=== PATIENT | female | born 1990 | race Caucasian/White ===

== ENCOUNTER 2016-07-09 13:33 | Emergency (ER) | payer BC ==
[2016-07-09 13:40] VITALS: RESP 16
--- NOTE | 2016-07-09 15:20 | EDPHY ---
H & P Time Seen by Provider: 07/09/16 15:17 HPI/ROS: HPI: 25-year-old female presents to emergency department with chief concern left 3rd finger laceration that occurred at 2:00 p.m. today when she cut herself at home with a blunt edge clean kitchen knife. Washed, applied CHI and pepper to control bleeding, and presents for evaluation. Reports pain, deformity, inability to fully straighten the distal portion of her left 3rd finger. Denies weakness, numbness, or tingling of the finger. Up-to-date with tetanus. Right-hand dominant. ROS:10 point review of systems is negative other than as stated in HPI Smoking Status: Never smoked Physical Exam: Vital signs stable, reviewed by me General: Awake, alert, calm, cooperative. No acute distress. Head: Normalocephalic. Atraumatic. EENT: PERRLA. EOMI. CV: Radial pulses 2+ bilaterally. Brisk cap refill all extremities. Neuro: Alert. Oriented x 3. Speech clear. Sensation intact all extremities, specifically sensation intact distal to laceration left 3rd finger Skin: Skin warm, dry. There is a 1 cm horizontal laceration located dorsum of left 3rd finger, just proximal to the DIPJ Musculoskeletal: Strength 5+ all extremities. Flexion deformity at DIPJ of left 3rd finger Constitutional: Initial Vital Signs Temperature (C) 36.6 C 07/09/16 13:37 Heart Rate 96 07/09/16 13:37 Respiratory Rate 16 07/09/16 13:37 Blood Pressure 116/73 07/09/16 13:37 O2 Sat (%) 97 07/09/16 13:37 O2 Delivery Mode Room Air Allergies/Adverse Reactions: No Known Allergies Allergy (Unverified 07/09/16 13:37) Home Medications: Medication Instructions Recorded Cephalexin [Keflex (*)] 500 mg PO QID #28 cap 07/09/16 Hydrocodone/APAP 5/325 [[place] 1 tab PO Q4H PRN #6 tab 07/09/16 5/325 (*)] Medical Decision Making - Diagnostics Imaging: Left 3rd finger - 3 views dated July 09, 2016 15:30 Indication: Deformity. Pain. Findings: Mallet finger deformity is evidenced by 45 degrees of flexion at the DIP joint. No acute fracture. Soft tissue defect is present along the dorsal aspect of the middle phalanx. Impression: 1. Suspect extensor tendon injury. 2. No acute fracture. Dictated By: Hilario Archer MD Procedures: After verbal consent was obtained and risks and benefits explained, the laceration was anesthetized using a digital block for a total of 4 ml of 0.5% Marcaine. Lac then irrigated per protocol by veterinary technician instructor. Under sterile procedure, the wound was explored to its base with a gloved finger and lacerated extensor tendon identified. No deep structure identified. Wound was then draped and sterile procedure followed during laceration repair. Wound was repaired using # 4, 5-0 Prolene sutures. After repair, laceration cleansed, bacitracin and sterile dressing applied. Procedure performed by myself. Procedure was simple. Pt tolerated the procedure well. ED Course/Re-evaluation: Hand specialist Dr. Norton consulted, spoke with his PARachel. They will evaluate this patient tomorrow. Boostrix given, after dressing applied, finger splinted. Neurovascular status intact after application Differential Diagnosis: Differential diagnosis includes but is not limited to laceration, fracture, extensor tendon laceration Departure - Departure Disposition: Home, Routine, Self-Care Clinical Impression: Extensor tendon laceration of finger with open wound Finger laceration involving tendon Qualifiers: Encounter type: initial encounter Qualifier Code: (S61.219A) Laceration without foreign body of unspecified finger without damage to nail, initial encounter Condition: Good Instructions: Tendon Laceration (ED), Finger Laceration (ED) Additional Instructions: Plan: Antibiotic as prescribed Follow up with Dr. Norton of Hand tomorrow without fail--When you call to schedule appointment, please let the office know you are an "ER follow up" appointment" and that his PARachel, requested that you be seen tomorrow, Wednesday. We saw you here today at the ED with a laceration of your finger. We closed the wound with 4 sutures. We'll have you leave the dressing on for 24 hours then remove it and begin cleaning the area daily by letting warm, soapy water run over it, but do not scrub or rub the site. Remove dried blood with a Q-tip dipped in water. Apply a thin layer of antibiotic ointment. Continue this routine daily. Recheck urgently if the area develops redness, swelling, increased pain, or red streaking above the wound, or if you develop a fever. Return to the emergency department in 10 days days for suture removal, or as directed by Dr. Norton. Return prior to then if any issues or concerns. You may use 600 mg of ibuprofen every 6 hours for fever, inflammation, or pain. Always take ibuprofen with food and stay well hydrated while taking. Do not exceed the maximum allowable dose in a 24 hour period which is 2400 mg. For more severe pain, 1 [place] every 4-6 hours as needed--Never drink or drive while taking this medication. This medication impairs decision making capacity so do not work or sign important documents while taking. This medication its constipating so drink plenty of fluids and consider an [id number]-[id number] stool softener such as docusate sodium (Colace) while taking this medication. This medication has addictive properties. You should use the least amount for the shortest amount of time. Replaced By [facility] do not refill narcotic pain medication prescriptions. This is a hospital policy. You will need to follow up as indicated for recheck for further narcotic refills. Referrals: OUT OF STATE,. [Primary Care Provider] - As per Instructions Sridhar Norton MD [Medical Doctor] - As per Instructions Prescriptions: Cephalexin [Keflex (*)] 500 mg PO QID #28 cap Hydrocodone/APAP 5/325 [[place] 5/325 (*)] 1 tab PO Q4H PRN #6 tab PRN Reason: Severe pain
--- NOTE | 2016-07-09 16:00 | DX ---
Left 3rd finger - 3 views dated July 09, 2016 15:30 Indication: Deformity. Pain. Findings: Mallet finger deformity is evidenced by 45 degrees of flexion at the DIP joint. No acute f racture. Soft tissue defect is present along the dorsal aspect of the middle phalanx. Impression: 1. Suspect extensor tendon injury. 2. No acute fracture.
[2016-07-09] MEDS ORDERED: TDAP ADULT 0.5 ML VIAL (BOOSTRIX) IM ONE (16:07)
[2016-07-09 16:23] VITALS: PULSE 75; TEMP 97.7; O2SAT 98
[2016-07-09 16:36] VITALS: BP 112/68
== END 2016-07-09 16:36 | disposition home or self-care (01) ==
PROC: 0HQGXZZ Repair Left Hand Skin, External Approach (ICD-10-PCS; principal; 2016-07-09)
DX: S61.213A Laceration without foreign body of left middle finger without damage to nail, initial encounter (principal); S61.203A Unspecified open wound of left middle finger without damage to nail, initial encounter; Z23 Encounter for immunization; W26.0XXA Contact with knife, initial encounter; Y92.009 Unspecified place in unspecified non-institutional (private) residence as the place of occurrence of the external cause
CPT/HCPCS: L3925